=== PATIENT | male | born 2000 | race Two or more races ===

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

== ENCOUNTER 2021-03-29 19:35 | Emergency (ER) | payer BC ==
[2021-03-29 20:41] LABS: CORONAVIRUS COVID-19 NAA NEGATIVE (NEGATIVE)
== END 2021-03-29 21:30 | disposition home or self-care (01) ==
LOC: JD.ED 19:35
DX: J06.9 Acute upper respiratory infection, unspecified (principal); Z20.822 Contact with and (suspected) exposure to COVID-19
CPT/HCPCS: 0240U; 36415; 86308; 87651; 99283; 99284